=== PATIENT | female | born 1995 | race Asian ===

== ENCOUNTER 2017-02-03 12:14 | Emergency (ER) | payer OTHER ==
[2017-02-03] MEDS ORDERED: Fluticasone NASAL SPRAY 50MCG* 16 gm SPRAY BTL BOTH NARES ONE (13:57)
--- NOTE | 2017-02-03 13:57 | ED ---
Influenza-Like Illness - HPI Summary HPI Summary: 21F presents with sinus congestion for 3 days. She also admits to fatigue, dry cough, and runny nose. She denies any chest pain, SOB, n/v/d or abdominal pain. She has been using dayquil and nyquil for the symptoms. She denies any fevers. She states that her nose being plugged makes it hard to breath. She denies any nose bleeds. - History of Current Complaint Chief Complaint: EDGeneral Time Seen by Provider: 02/03/17 13:45 - Allergy/Home Medications Allergies/Adverse Reactions: Allergies Allergy/AdvReac Type Severity Reaction Status Date / Time No Known Allergies Allergy Verified 09/16/16 10:45 PMH/Surg Hx/FS Hx/Imm Hx Endocrine/Hematology History: Denies: Hx Diabetes, Hx Thyroid Disease Cardiovascular History: Denies: Hx Congenital Heart Disease Respiratory History: Denies: Hx Asthma GI History: Denies: Hx Ulcer, Other GI Disorders Neurological History: Denies: Hx Headaches Psychiatric History: Denies: Hx Anxiety, Hx Depression Infectious Disease History: No Infectious Disease History: Denies: Traveled Outside the [place] in Last 30 Days - Family History Known Family History: Positive: None - Social History Alcohol Use: None Hx Substance Use: No Substance Use Type: Reports: None Smoking Status (MU): Never Smoked Tobacco Review of Systems Negative: Fever Positive: Nasal Discharge Negative: Chest Pain Positive: Cough. Negative: Shortness Of Breath All Other Systems Reviewed And Are Negative: Yes Physical Exam Triage Information Reviewed: Yes Vital Signs On Initial Exam: Initial Vitals Temp Pulse Resp BP Pulse Ox 98.1 F 79 14 128/85 97 02/03/17 12:21 02/03/17 12:21 02/03/17 12:21 02/03/17 12:21 02/03/17 12:21 Vital Signs Reviewed: Yes Appearance: Positive: Well-Appearing Skin: Positive: Warm, Dry Head/Face: Positive: Normal Head/Face Inspection Eyes: Positive: Normal, Conjunctiva Clear ENT: Positive: Normal ENT inspection, Pharynx normal, Nasal congestion, Nasal drainage, TMs normal Neck: Positive: Supple, Nontender, No Lymphadenopathy Respiratory/Lung Sounds: Positive: Clear to Auscultation, Breath Sounds Present Cardiovascular: Positive: Normal, RRR Diagnostics - Vital Signs Vital Signs Temp Pulse Resp BP Pulse Ox 02/03/17 12:21 98.1 F 79 14 128/85 97 - Laboratory Lab Statement: Any lab studies that have been ordered have been reviewed, and results considered in the medical decision making process. Flu Symptom Course/Dx - Course Course Of Treatment: 21F presents with cold like symptoms for 3 days. admits to nasal congestion, dry cough, and fatigue, states nose is what is bothering her the most. on exam lungs CTA and has nasal congestion present. will treat with flonase and told to use nasal saline. patient understands and agrees with plan - Diagnoses Differential Diagnosis/HQI/PQRI: Positive: Bronchitis, Upper Respiratory Infection, Other - cold, sinusitis Provider Diagnoses: Upper respiratory infection Discharge - Discharge Plan Condition: Good Disposition: HOME Patient Education Materials: Upper Respiratory Infection (ED) Referrals: MATEUS Francis [Primary Care Provider] - Additional Instructions: Use intranasal steroid one spray each nostril twice a day Use saline spray in nose as much as needed Use humidifier in room or can use warm water in bowls Take ibuprofen every 6 hours as need for pain Follow up with Mateus in 5 days if no improvement Return to ED if develop any new or worsening symptoms
[2017-02-03 14:30] VITALS: BP 110/67
== END 2017-02-03 14:28 | disposition home or self-care (01) ==
LOC: ED 12:14
DX: J06.9 Acute upper respiratory infection, unspecified (principal); R05 Cough
CPT/HCPCS: 99281